=== PATIENT | female | born 1955 | race African-American/Black ===

== ENCOUNTER 2017-05-22 13:20 | Inpatient (IN) | payer SELFPAY ==
[~2017-05-22] VITALS: Ht 162.6 cm; Wt 51.7 kg
[2017-05-22 13:25] VITALS: BP 115/91
[2017-05-22 13:35] VITALS: BP 108/82
[2017-05-22 14:08] VITALS: BP 121/91
[2017-05-22] MEDS ORDERED: Albuterol ud Inhalation HHN ONE (14:30)
[2017-05-22] MEDS ORDERED: Ipratropium 0.02% Inh Soln 2.5ml UD HHN ONE (14:30)
[2017-05-22 14:32] LABS: BASOPHILS % (AUTO) 0.7 % (0.0-2.0); EOSINOPHILS % (AUTO) 0.2 % (0.0-3.0); LYMPHOCYTES % (AUTO) 14.1 % (20.0-45.0); MEAN CORPUSCULAR HEMOGLOBIN 30.8 PG (27.0-31.0); MEAN CORPUSCULAR HGB CONC 33.2 G/DL (32.0-36.0); MEAN CORPUSCULAR VOLUME 93 FL (80-99); MONOCYTES % (AUTO) 7.6 % (1.0-10.0); NEUTROPHILS % (AUTO) 77.4 % (45.0-75.0); PLATELET COUNT 213 K/UL (150-450); RED BLOOD COUNT 3.23 M/UL (4.20-5.40); RED CELL DISTRIBUTION WIDTH 13.2 % (11.6-14.8); WHITE BLOOD COUNT 6.8 K/UL (4.8-10.8)
--- NOTE | 2017-05-22 14:41 | Emergency Room Report ---
History of Present Illness General Chief Complaint: Upper Respiratory Illness Source: Patient, EMS Present Illness HPI 61YOF BIBEMS with SOB for 1 day. +smoker, history of COPD, CHF, HTN Denies fever/chills, cough, abd pain, nausea/vomiting, urinary complaints "Ran out of insurance" in September. Hasnt taken metoprolol 50mg or methimazole or asthma inhaler "in months." "Previous heart surgery." Not sure what type Allergies: Coded Allergies: PENICILLINS (Verified Allergy, Unknown, 05/22/17) Patient History Past Medical History: HTN, CHF, asthma, other - Graves disease Past Surgical History: other - "heart surgery" Pertinent Family History: none Social History: Reports: smoking, Denies: alcohol use, drug use Immunizations: UTD Reviewed Nursing Documentation: PMH: Agreed, PSxH: Agreed Nursing Documentation-PMH Past Medical History: No History, Except For Hx Cardiac Problems: Yes Hx Hypertension: Yes Hx COPD: Yes Review of Systems All Other Systems: negative except mentioned in HPI Physical Exam Vital Signs Date Time Temp Pulse Resp B/P (MAP) Pulse Ox O2 Delivery O2 Flow Rate FiO2 05/22/17 13:17 98.8 140 18 126/100 100 Non-Rebreather 15.0 Sp02 EP Interpretation: reviewed, normal General Appearance: normal inspection, no apparent distress, alert, GCS 15, non -toxic, moderate distress, other - Tripoding/leaning forward, tachypnic Head: normocephalic, atraumatic Eyes: bilateral eye PERRL, bilateral eye EOMI ENT: normal ENT inspection, hearing grossly normal, normal voice Neck: normal inspection, full range of motion, supple, no bony tend Respiratory: normal inspection, no wheezing, decreased breath sounds, accessory muscle use, crackles, wheezing Cardiovascular #1: no edema, JVD, tachycardia Gastrointestinal: normal inspection, normal bowel sounds, non tender, soft, no guarding, no hernia Genitourinary: no CVA tenderness Musculoskeletal: normal inspection, back normal, normal range of motion, Saurabh' s Sign negative Neurologic: normal inspection, alert, oriented x3, responsive, 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, speech normal Psychiatric: normal inspection, judgement/insight normal, mood/affect normal Skin: normal inspection, normal color, no rash Procedures Critical Care Time Critical Care Time CC time 45 minutes for this patient with SOB Multiple medical problems CHF, COPD Tachypnea, tachycardia, hypoxic CC time includes admin of BIPAP/adjusting settings, review of labs/ECG/CXR, d/w director [employer] Possibly includes dosing of meds for NSTEMI/ACS Possibly includes dosing of Abx, pressors Medical Decision Making Diagnostic Impression: Primary Impression: SOB (shortness of breath) Additional Impressions: Hyperthyroidism CHF (congestive heart failure) Qualified Codes: I50.9 - Heart failure, unspecified ER Course SOB for 1 day Months of noncompliance on medications VS significant for tachypnea to 45, tachycardia to 131, hypoxia Likely multifactorial of COPD, CHF Labs: No leuks. H&h stable. Tropo WNL. Elevated BNP. LOW TSH - likely multifactorial causes including acute on chronic CHF, hyperthyroidism from uncontrolled Graves disease - Improved on BIPAP - Got Oral methimazole and Metoprolol - Free T3/4 were ordered, lab told me they are send-outs Admit to [facility] Dr. Ruff for Dr Gray 357pm EKG Diagnostic Results Rate: tachycardiac Rhythm: NSR ST Segments: no acute changes ASA given to the pt in ED: No Rhythm Strip Diag. Results EP Interpretation: yes Rate: 133 Rhythm: NSR, no PVC's, no ectopy Chest X-Ray Diagnostic Results Chest X-Ray Diagnostic Results : Chest X-Ray Ordered: Yes # of Views/Limited/Complete: 1 View Indication: Shortness of Breath EP Interpretation: Yes Interpretation: no pneumothorax, other - Acute pulm congestion Last Vital Signs Date Time Temp Pulse Resp B/P (MAP) Pulse Ox O2 Delivery O2 Flow Rate FiO2 05/22/17 13:25 98.8 118 36 115/91 100 Non-Rebreather 15.0 Status: improved Disposition: ADMITTED INPATIENT Condition: Critical ALYSSA NAVA M.D. May 22, 2017 14:41
[2017-05-22] MEDS ORDERED: LORazepam 0.5mg tab ORAL ONE (15:00)
[2017-05-22 15:15] LABS: ALANINE AMINOTRANSFERASE 53 U/L (12-78); ALBUMIN/GLOBULIN RATIO 1.1 (1.0-2.7); ANION GAP 14 mmol/L (5-15); ASPARTATE AMINO TRANSFERASE 32 U/L (15-37); CALCIUM 9.7 MG/DL (8.5-10.1); CARBON DIOXIDE 23 MMOL/L (21-32); CHLORIDE 111 MMOL/L (98-107); CKMB 2.1 NG/ML (0.0-3.6); CREATININE 0.4 MG/DL (0.55-1.30); GLOMERULAR FILTRATION RATE > 60 mL/min (>60); POTASSIUM 3.7 MMOL/L (3.5-5.1); SODIUM 148 MMOL/L (136-145); THYROID STIMULATING HORMONE < 0.007 uiU/mL (0.360-3.740); TOTAL PROTEIN 6.4 G/DL (6.4-8.2)
--- NOTE | 2017-05-22 15:23 | Diagnostic Imaging Report ---
Indication: SOB Technique: One view of the chest Comparison: none Findings: There is diffuse bilateral reticular and nodular interstitial disease. There is some bronchial wall thickening. There are bilateral pleural effusions the heart is mildly enlarged Impression: Mild cardiomegaly Bilateral diffuse interstitial disease, acuity indeterminate, could represent acute interstitial edema, versus chronic interstitial fibrotic change, versus combination of both. Correlate with clinical findings. Bilateral pleural effusions
[2017-05-22 15:37] VITALS: BP 109/72
[2017-05-22] MEDS ORDERED: ADVAIR 100-501 EACH INH (15:54)
[2017-05-22] MEDS ORDERED: METOPROLOL SUCC50 MG ORAL (15:54)
[2017-05-22] MEDS ORDERED: METHIMAZOLE5 MG PO (15:54)
[2017-05-22] MEDS ORDERED: VENTOLIN HFA18 GM INH (15:55)
[2017-05-22] MEDS ORDERED: Morphine Sulfate 4mg/ml Inj IVP PRN ×2 (16:30)
[2017-05-22] MEDS ORDERED: Miralax 17gm pkt ORAL PRN (16:30)
[2017-05-22] MEDS ORDERED: Promethazine/Codeine 5ml UD ORAL PRN (17:00)
[2017-05-22 17:10] VITALS: BP 149/84
[2017-05-22] MEDS ORDERED: Ipratropium 0.02% Inh Soln 2.5ml UD HHN PRN (17:30)
[2017-05-22] MEDS ORDERED: Albuterol/Ipratropium 3ml neb HHN PRN (17:30)
--- NOTE | 2017-05-22 17:33 | History and Physical ---
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 Aguero at [facility] on 12/22/16), CHF, HTN who presents with SOB. Pt states she has not taken her meds since Sep of this year as she lost her insurance. She noted worsening SOB over the past few weeks and especially today prompting her to come to ER. Denies f/c, n/v, d/c, chest pain, abd pain, BLE swelling. In ED, pt found to have severe hyperthyroidism. She was given methimazole. She was noted to be in respiratory distress and placed on BiPAP. Allergies: Coded Allergies: CODEINE (Verified Allergy, Unknown, 05/22/17) PENICILLINS (Verified Allergy, Unknown, 05/22/17) Medication History Scheduled Albuterol Sulfate (Ventolin Hfa), 2 PUFFS INH EVERY 6 HOURS, (Reported) Fluticasone/Salmeterol (Advair 100-50 Diskus), 1 PUFF INH EVERY 12 HOURS, ( Reported) Metoprolol Succinate* (Metoprolol Succinate*), 50 MG ORAL DAILY, (Reported) Miscellaneous Medications Methimazole (Methimazole), 5 MG PO, (Reported) Patient History History Provided By: Patient, Medical Record Healthcare decision maker N Resuscitation status Advanced Directive on File Past Medical/Surgical History Past Medical/Surgical History: (1) CHF (congestive heart failure) (2) COPD (chronic obstructive pulmonary disease) (3) Hyperthyroidism (4) HTN (hypertension) (5) Bicuspid aortic valve (6) Graves disease (7) s/p robotic repair of MV and TV with annular rings by Dr. Aguero at [facility] on 12/23/2015 (8) high output cardiomyopathy Family History Family History: Patient reports no known family medical history. Social History Social History: (1) Tobacco abuse Review of Systems Constitutional: Reports: weakness ENT: Reports: no symptoms Respiratory: Reports: shortness of breath Cardiovascular: Reports: no symptoms Gastrointestinal: Reports: no symptoms Genitourinary: Reports: no symptoms Musculoskeletal: Reports: no symptoms Skin: Reports: no symptoms Psychiatric: Reports: no symptoms Neurological: Reports: no symptoms Endocrine: Reports: no symptoms Hematologic/Lymphatic: Reports: no symptoms Physical Exam Physical Exam Narrative General: alert, cooperative, no distress, appears stated age, thin Head: normocephalic, without obvious abnormality, atraumatic Eyes: conjunctivae/corneas clear. PERRL, EOM's intact Throat: lips, mucosa, and tongue normal. MMM Neck: supple, symmetrical, trachea midline, and no JVD Lungs: +rhonchi L>R Heart: regular rate and rhythm, S1, S2 normal, no murmur, click, rub or gallop Abdomen: soft, non-tender, non-distended, bowel sounds normal; no masses or organomegaly Extremities: extremities normal, atraumatic, no cyanosis or edema Pulses: 2+ and symmetric Skin: skin color, texture, turgor normal; no rashes or lesions Neurologic: grossly normal, no focal deficits Last 24 Hour Vital Signs Date Time Temp Pulse Resp B/P (MAP) Pulse Ox O2 Delivery O2 Flow Rate FiO2 05/22/17 17:10 97.9 130 39 149/84 95 Bi-pap 30 05/22/17 17:00 130 34 96 Facial 15.0 30 05/22/17 16:48 15.0 30 05/22/17 16:45 98.8 133 42 109/72 97 Bi-pap 15.0 30 05/22/17 15:37 98.8 133 42 109/72 97 Bi-pap 15.0 30 05/22/17 15:13 136 40 96 Bi-pap 15.0 30 05/22/17 15:03 30 05/22/17 15:03 125 42 96 Bi-pap 15.0 30 05/22/17 14:45 144 42 96 Facial 15.0 30 05/22/17 14:08 98.7 136 32 121/91 100 Non-Rebreather 15.0 05/22/17 13:35 98.7 142 34 108/82 100 Non-Rebreather 15.0 05/22/17 13:25 98.8 118 36 115/91 100 Non-Rebreather 15.0 05/22/17 13:25 118 36 Non-Rebreather 15.0 05/22/17 13:17 98.8 140 18 126/100 100 Non-Rebreather 15.0 Intake and Output 05/22/17 05/23/17 19:00 07:00 Output Total 100 ml Balance -100 ml Output Urine Total 100 ml # Voids 4 Laboratory Tests Test 05/22/17 14:00 05/22/17 14:43 05/22/17 14:53 05/22/17 16:10 White Blood Count 6.8 K/UL (4.8-10.8) Red Blood Count 3.23 M/UL (4.20-5.40) L Hemoglobin 10.0 G/DL (12.0-16.0) L Hematocrit 30.1 % (37.0-47.0) L Mean Corpuscular Volume 93 FL (80-99) Mean Corpuscular Hemoglobin 30.8 PG (27.0-31.0) Mean Corpuscular Hemoglobin Concent 33.2 G/DL (32.0-36.0) Red Cell Distribution Width 13.2 % (11.6-14.8) Platelet Count 213 K/UL (150-450) Mean Platelet Volume 8.0 FL (6.5-10.1) Neutrophils (%) (Auto) 77.4 % (45.0-75.0) H Lymphocytes (%) (Auto) 14.1 % (20.0-45.0) L Monocytes (%) (Auto) 7.6 % (1.0-10.0) Eosinophils (%) (Auto) 0.2 % (0.0-3.0) Basophils (%) (Auto) 0.7 % (0.0-2.0) Sodium Level 148 MMOL/L (136-145) H Potassium Level 3.7 MMOL/L (3.5-5.1) Chloride Level 111 MMOL/L (98-107) H Carbon Dioxide Level 23 MMOL/L (21-32) Anion Gap 14 mmol/L (5-15) Blood Urea Nitrogen 11 mg/dL (7-18) Creatinine 0.4 MG/DL (0.55-1.30) L Estimat Glomerular Filtration Rate > 60 mL/min (>60) Glucose Level 79 MG/DL (74-106) Calcium Level 9.7 MG/DL (8.5-10.1) Total Bilirubin 0.9 MG/DL (0.2-1.0) Aspartate Amino Transf (AST/SGOT) 32 U/L (15-37) Alanine Aminotransferase (ALT/SGPT) 53 U/L (12-78) Alkaline Phosphatase 166 U/L (46-116) H Total Creatine Kinase 44 U/L (26-308) Creatine Kinase MB 2.1 NG/ML (0.0-3.6) Creatine Kinase MB Relative Index 4.7 Pro-B-Type Natriuretic Peptide 1186 pg/mL (0-125) H Total Protein 6.4 G/DL (6.4-8.2) Albumin 3.4 G/DL (3.4-5.0) Globulin 3.0 g/dL Albumin/Globulin Ratio 1.1 (1.0-2.7) Thyroid Stimulating Hormone (TSH) < 0.007 uiU/mL (0.360-3.740) Free Thyroxine 7.99 NG/DL (0.10-1.46) H Urine Opiates Screen Negative (NEGATIVE) Urine Barbiturates Screen Negative (NEGATIVE) Phencyclidine (PCP) Screen Negative (NEGATIVE) Urine Amphetamines Screen Negative (NEGATIVE) Urine Benzodiazepines Screen Negative (NEGATIVE) Urine Cocaine Screen Negative (NEGATIVE) Urine Marijuana (THC) Screen Negative (NEGATIVE) Troponin I 0.021 ng/mL (0.000-0.056) Free Triiodothyronine Pending Height (Feet): 5 Height (Inches): 4.00 Weight (Pounds): 130 Medications Current Medications Medications (Trade) Dose Ordered Sig/Palma Route PRN Reason Start Time Stop Time Status Last Admin Dose Admin Acetaminophen (Tylenol) 650 mg Q4H PRN ORAL Mild Pain (Pain Scale 1-3) 05/22/17 16:30 06/21/17 16:29 Albuterol/ Ipratropium (DuoNeb 0.5-3(2.5)mg/3ml) 3 ml Q6HRT HHN 05/22/17 19:00 05/27/17 18:59 Aztreonam 1 gm/ Sodium Chloride 50 ml @ 100 mls/hr Q8H IVPB 05/22/17 18:00 05/29/17 17:59 Bisacodyl (Dulcolax) 10 mg HSPRN PRN RECTAL Constipation Second Line Agent 05/22/17 16:30 06/21/17 16:29 Dextrose (Dextrose 50%) STAT PRN IV Hypoglycemia 05/22/17 16:30 06/21/17 16:29 Methylprednisolone Sodium Succinate (Solu-MEDROL) 60 mg EVERY 6 HOURS IVP 05/22/17 18:00 06/21/17 17:59 Morphine Sulfate (Morphine Sulfate) 2 mg Q4H PRN IVP Moderate Pain (Pain Scale 4-6) 05/22/17 16:30 05/29/17 16:29 Morphine Sulfate (Morphine Sulfate) 4 mg Q4H PRN IVP Severe Pain (Pain Scale 7-10) 05/22/17 16:30 05/29/17 16:29 Ondansetron HCl (Zofran) 4 mg Q6H PRN IVP Nausea & Vomiting 05/22/17 16:30 06/21/17 16:29 Polyethylene Glycol (Miralax) 17 gm HSPRN PRN ORAL Constipation First Line Agent 05/22/17 16:30 06/21/17 16:29 Promethazine HCl/ Codeine (Phenergan with Codeine) 5 ml Q4H PRN ORAL For Cough 05/22/17 17:00 06/21/17 16:59 Theophylline (Haim-Dur) 100 mg EVERY 12 HOURS ORAL 05/22/17 21:00 06/21/17 20:59 Assessment/Plan Problem List: (1) Thyrotoxicosis ICD Codes: E05.90 - Thyrotoxicosis, unspecified without thyrotoxic crisis or storm SNOMED: 06621916 (2) Acute respiratory failure with hypoxia ICD Codes: J96.01 - Acute respiratory failure with hypoxia SNOMED: 15052432, 677676093 (3) COPD with acute exacerbation ICD Codes: J44.1 - Chronic obstructive pulmonary disease with (acute) exacerbation SNOMED: 325068371 (4) Graves disease ICD Codes: E05.00 - Thyrotoxicosis with diffuse goiter without thyrotoxic crisis or storm SNOMED: 147680179 (5) CHF (congestive heart failure) ICD Codes: I50.9 - Heart failure, unspecified SNOMED: 55234967 Qualifiers: Qualified Codes: I50.9 - Heart failure, unspecified (6) HTN (hypertension) ICD Codes: I10 - Essential (primary) hypertension SNOMED: 19925919 (7) Tobacco abuse ICD Codes: Z72.0 - Tobacco use SNOMED: 09253554, 878074061 (8) Noncompliance with medications ICD Codes: Z91.14 - Patient's other noncompliance with medication regimen SNOMED: 639532284 Status: stable Assessment/Plan Admit to [facility] Endocrinology consulted Cont methimazole per endo Cardiology and pulm consulted Trend trop/EKG Check TTE Lasix 40mg IV qd to keep I/O -1L Strict I/O's, daily weights Steroids per pulm Hold MTP given COPD exacerbation Nebs ATC and PRN Cont home Advair and Spiriva Windows Consultant on tobacco cessation Windows Consultant on med compliance FULL CODE D/w pt, RN, cardiology, pulmonology, endocrinology regarding mgmt and dispo Elzbieta Sena M.D. May 22, 2017 17:33
[2017-05-22] MEDS: Solu-MEDROL 125mg Inj IVP SCH (18:41)
[2017-05-22] MEDS: Aztreonam Inj 1 GM in NS 50 ML IVPB SCH (18:42)
[2017-05-22] MEDS ORDERED: LORazepam Inj 2mg/ml 1ml IV PRN (18:45)
[2017-05-22] MEDS ORDERED: Levalbuterol Inh UD 1.25mg/0.5ml HHN PRN (18:45)
[2017-05-22] MEDS ORDERED: Albuterol/Ipratropium 3ml neb HHN SCH (19:00)
[2017-05-22 20:00] VITALS: BP 135/74
[2017-05-22] MEDS: Theophylline ER 100mg ORAL SCH (21:02)
[2017-05-23] VITALS: BP 134/62
[2017-05-23] MEDS ORDERED: Levalbuterol Inh UD 1.25mg/0.5ml HHN SCH
[2017-05-23] MEDS: Solu-MEDROL 125mg Inj IVP SCH ×4 (00:28→18:19)
[2017-05-23] MEDS: Levalbuterol Inh UD 1.25mg/0.5ml HHN SCH ×4 (01:03→19:30)
[2017-05-23] MEDS: Aztreonam Inj 1 GM in NS 50 ML IVPB SCH ×3 (02:18→18:19)
[2017-05-23 04:00] VITALS: BP 132/59
[2017-05-23 06:09] LABS: MEAN CORPUSCULAR HEMOGLOBIN 29.7 PG (27.0-31.0); MEAN CORPUSCULAR HGB CONC 31.8 G/DL (32.0-36.0); MEAN CORPUSCULAR VOLUME 93 FL (80-99); MEAN PLATELET VOLUME 7.6 FL (6.5-10.1); PLATELET COUNT 216 K/UL (150-450); RED BLOOD COUNT 3.31 M/UL (4.20-5.40); RED CELL DISTRIBUTION WIDTH 13.3 % (11.6-14.8); WHITE BLOOD COUNT 8.6 K/UL (4.8-10.8)
[2017-05-23 06:40] LABS: ANION GAP 15 mmol/L (5-15); CALCIUM 9.9 MG/DL (8.5-10.1); CARBON DIOXIDE 23 MMOL/L (21-32); CHLORIDE 109 MMOL/L (98-107); CREATININE 0.3 MG/DL (0.55-1.30); GLOMERULAR FILTRATION RATE > 60 mL/min (>60); POTASSIUM 3.7 MMOL/L (3.5-5.1); SODIUM 146 MMOL/L (136-145); THYROID STIMULATING HORMONE < 0.007 uiU/mL (0.360-3.740)
[2017-05-23 08:00] VITALS: BP 117/77
[2017-05-23] MEDS: Theophylline ER 100mg ORAL SCH ×2 (08:28→21:52)
[2017-05-23] MEDS ORDERED: Metoprolol Succinate XL 50mg tab ORAL SCH ×2 (09:00)
--- NOTE | 2017-05-23 09:01 | Consultation ---
DATE OF CONSULTATION: 05/22/2017 ENDOCRINOLOGIC CONSULTATION CONSULTING PHYSICIAN: Diego Barajas M.D. REFERRING PHYSICIAN: Anahy Gray M.D. REASON FOR CONSULTATION: Hyperthyroidism. HISTORY OF PRESENT ILLNESS: The patient is a 61-year-old female with history of Graves disease who lost her insurance earlier this year therefore she went off of methimazole. The patient presented to the hospital with respiratory distress, was admitted to telemetry bed, started on BiPAP. I was called to evaluate for hypothyroidism. Her thyroid function test revealed undetectable TSH with elevated free T4 of 7.9, free T3 pending. PAST MEDICAL HISTORY: 1. Graves disease, previously followed at [facility] clinic. 2. COPD. 3. Hypertension. MEDICATIONS: As an outpatient none. FAMILY HISTORY: Noncontributory. REVIEW OF SYSTEMS: As per HPI. PHYSICAL EXAMINATION: VITAL SIGNS: Temperature 97.9, heart rate of 130, blood pressure 149/84, and respiratory rate of 39. HEENT: Pupils are equal and reactive to light. GED. NECK: No JVD. Thyroid is palpable. HEART: Tachycardic. LUNGS: wheezing. ABDOMEN: Positive bowel sounds. EXTREMITIES: Positive for tremor. LABORATORY DATA: As discussed in the present illness. DIAGNOSES: 1. Severe thyrotoxicosis. 2. Graves disease. 3. Chronic obstructive pulmonary disease exacerbation. PLAN: 1. Continue steroids. 2. Start Tapazole 20 mg b.i.d. 3. Once the COPD is stabilized, the patient needs to be treated with beta-blockers. 4. I will follow the patient during the hospital stay. Thank you, Dr. Gray for the courtesy of this consultation. Diego Barajas M.D. DR: David JOB#: [id number] CC: SERINA
[2017-05-23 09:10] LABS: BAND NEUTROPHILS % (MANUAL) 0 % (0-8); BASOPHILS % (MANUAL) 0 % (0-2); EOSINOPHILS % (MANUAL) 0 % (0-3); HYPOCHROMASIA 1+; LYMPHOCYTES % (MANUAL) 6 % (20-45); NEUTROPHILS % (MANUAL) 94 % (45-75); PLATELET ESTIMATE ADEQUATE; PLATELET MORPHOLOGY NORMAL; TOTAL CELLS COUNTED 100
[2017-05-23 09:23] LABS: ABG ALLEN TEST POSITIVE; ABG BASE EXCESS -2.2; ABG PCO2 33.8 mmHg (35.0-45.0)
[2017-05-23 09:32] LABS: MAGNESIUM 1.5 MG/DL (1.8-2.4); PHOSPHORUS 3.3 MG/DL (2.5-4.9)
--- NOTE | 2017-05-23 10:34 | Cardiac Electrophysiology PN ---
Subjective Subjective [id number]. Dictated. Hold off on metoprolol despite hyperthyroidism for wheezing and respiratory failure. Start Cardizem. TTE pending Objective Last 24 Hour Vital Signs Date Time Temp Pulse Resp B/P (MAP) Pulse Ox O2 Delivery O2 Flow Rate FiO2 05/23/17 08:28 130 117/77 05/23/17 08:00 97.0 130 19 117/77 96 Bi-pap 30 05/23/17 08:00 30 05/23/17 07:26 127 05/23/17 07:18 121 32 100 Bi-pap 30 05/23/17 07:11 115 27 100 Facial 30 05/23/17 07:05 30 05/23/17 07:05 120 26 98 Bi-pap 30 05/23/17 05:24 124 31 97 Facial 30 05/23/17 04:00 15.0 30 05/23/17 04:00 98.4 121 32 132/59 96 Bi-pap 30 05/23/17 03:47 122 05/23/17 03:05 123 34 98 Facial 30 05/23/17 01:13 126 43 99 Bi-pap 30 05/23/17 01:03 121 41 99 Bi-pap 30 05/23/17 01:03 121 41 99 Facial 30 05/23/17 01:03 30 05/23/17 00:00 98.3 127 36 134/62 99 Bi-pap 30 05/23/17 00:00 125 05/22/17 23:30 123 45 98 Facial 30 05/22/17 21:18 119 43 97 Facial 30 05/22/17 20:07 Bi-pap 30 05/22/17 20:07 Bi-pap 30 05/22/17 20:07 126 38 100 Facial 30 05/22/17 20:00 15.0 30 05/22/17 20:00 98.1 76 36 135/74 97 Bi-pap 30 05/22/17 19:24 122 05/22/17 17:10 97.9 130 39 149/84 95 Bi-pap 30 05/22/17 17:00 130 34 96 Facial 15.0 30 05/22/17 16:48 15.0 30 05/22/17 16:45 98.8 133 42 109/72 97 Bi-pap 15.0 30 05/22/17 15:37 98.8 133 42 109/72 97 Bi-pap 15.0 30 05/22/17 15:13 136 40 96 Bi-pap 15.0 30 05/22/17 15:03 30 05/22/17 15:03 125 42 96 Bi-pap 15.0 30 05/22/17 14:45 144 42 96 Facial 15.0 30 05/22/17 14:08 98.7 136 32 121/91 100 Non-Rebreather 15.0 05/22/17 13:35 98.7 142 34 108/82 100 Non-Rebreather 15.0 05/22/17 13:25 98.8 118 36 115/91 100 Non-Rebreather 15.0 05/22/17 13:25 118 36 Non-Rebreather 15.0 05/22/17 13:17 98.8 140 18 126/100 100 Non-Rebreather 15.0 Laboratory Tests Test 05/22/17 14:00 05/22/17 14:43 05/22/17 14:53 05/22/17 16:10 White Blood Count 6.8 K/UL (4.8-10.8) Red Blood Count 3.23 M/UL (4.20-5.40) L Hemoglobin 10.0 G/DL (12.0-16.0) L Hematocrit 30.1 % (37.0-47.0) L Mean Corpuscular Volume 93 FL (80-99) Mean Corpuscular Hemoglobin 30.8 PG (27.0-31.0) Mean Corpuscular Hemoglobin Concent 33.2 G/DL (32.0-36.0) Red Cell Distribution Width 13.2 % (11.6-14.8) Platelet Count 213 K/UL (150-450) Mean Platelet Volume 8.0 FL (6.5-10.1) Neutrophils (%) (Auto) 77.4 % (45.0-75.0) H Lymphocytes (%) (Auto) 14.1 % (20.0-45.0) L Monocytes (%) (Auto) 7.6 % (1.0-10.0) Eosinophils (%) (Auto) 0.2 % (0.0-3.0) Basophils (%) (Auto) 0.7 % (0.0-2.0) Sodium Level 148 MMOL/L (136-145) H Potassium Level 3.7 MMOL/L (3.5-5.1) Chloride Level 111 MMOL/L (98-107) H Carbon Dioxide Level 23 MMOL/L (21-32) Anion Gap 14 mmol/L (5-15) Blood Urea Nitrogen 11 mg/dL (7-18) Creatinine 0.4 MG/DL (0.55-1.30) L Estimat Glomerular Filtration Rate > 60 mL/min (>60) Glucose Level 79 MG/DL (74-106) Calcium Level 9.7 MG/DL (8.5-10.1) Total Bilirubin 0.9 MG/DL (0.2-1.0) Aspartate Amino Transf (AST/SGOT) 32 U/L (15-37) Alanine Aminotransferase (ALT/SGPT) 53 U/L (12-78) Alkaline Phosphatase 166 U/L (46-116) H Total Creatine Kinase 44 U/L (26-308) Creatine Kinase MB 2.1 NG/ML (0.0-3.6) Creatine Kinase MB Relative Index 4.7 Pro-B-Type Natriuretic Peptide 1186 pg/mL (0-125) H Total Protein 6.4 G/DL (6.4-8.2) Albumin 3.4 G/DL (3.4-5.0) Globulin 3.0 g/dL Albumin/Globulin Ratio 1.1 (1.0-2.7) Thyroid Stimulating Hormone (TSH) < 0.007 uiU/mL (0.360-3.740) Free Thyroxine 7.99 NG/DL (0.10-1.46) H Urine Opiates Screen Negative (NEGATIVE) Urine Barbiturates Screen Negative (NEGATIVE) Phencyclidine (PCP) Screen Negative (NEGATIVE) Urine Amphetamines Screen Negative (NEGATIVE) Urine Benzodiazepines Screen Negative (NEGATIVE) Urine Cocaine Screen Negative (NEGATIVE) Urine Marijuana (THC) Screen Negative (NEGATIVE) Troponin I 0.021 ng/mL (0.000-0.056) Free Triiodothyronine Pending Test 05/23/17 04:40 05/23/17 09:15 White Blood Count 8.6 K/UL (4.8-10.8) Red Blood Count 3.31 M/UL (4.20-5.40) L Hemoglobin 9.9 G/DL (12.0-16.0) L Hematocrit 31.0 % (37.0-47.0) L Mean Corpuscular Volume 93 FL (80-99) Mean Corpuscular Hemoglobin 29.7 PG (27.0-31.0) Mean Corpuscular Hemoglobin Concent 31.8 G/DL (32.0-36.0) L Red Cell Distribution Width 13.3 % (11.6-14.8) Platelet Count 216 K/UL (150-450) Mean Platelet Volume 7.6 FL (6.5-10.1) Neutrophils (%) (Auto) % (45.0-75.0) Lymphocytes (%) (Auto) % (20.0-45.0) Monocytes (%) (Auto) % (1.0-10.0) Eosinophils (%) (Auto) % (0.0-3.0) Basophils (%) (Auto) % (0.0-2.0) Differential Total Cells Counted 100 Neutrophils % (Manual) 94 % (45-75) H Lymphocytes % (Manual) 6 % (20-45) L Monocytes % (Manual) 0 % (1-10) L Eosinophils % (Manual) 0 % (0-3) Basophils % (Manual) 0 % (0-2) Band Neutrophils 0 % (0-8) Platelet Estimate Adequate Platelet Morphology Normal Hypochromasia 1+ Sodium Level 146 MMOL/L (136-145) H Potassium Level 3.7 MMOL/L (3.5-5.1) Chloride Level 109 MMOL/L (98-107) H Carbon Dioxide Level 23 MMOL/L (21-32) Anion Gap 15 mmol/L (5-15) Blood Urea Nitrogen 8 mg/dL (7-18) Creatinine 0.3 MG/DL (0.55-1.30) L Estimat Glomerular Filtration Rate > 60 mL/min (>60) Glucose Level 90 MG/DL (74-106) Calcium Level 9.9 MG/DL (8.5-10.1) Phosphorus Level 3.3 MG/DL (2.5-4.9) Magnesium Level 1.5 MG/DL (1.8-2.4) L Pro-B-Type Natriuretic Peptide 881 pg/mL (0-125) H Thyroid Stimulating Hormone (TSH) < 0.007 uiU/mL (0.360-3.740) Arterial Blood pH 7.420 (7.350-7.450) Arterial Blood Partial Pressure CO2 33.8 mmHg (35.0-45.0) L Arterial Blood Partial Pressure O2 79.8 mmHg (75.0-100.0) Arterial Blood HCO3 21.4 mmol/L (22.0-26.0) L Arterial Blood Oxygen Saturation 96.9 % (92.0-98.0) Arterial Blood Base Excess -2.2 Indra Test Positive STEPHON FABIAN May 23, 2017 10:34
[2017-05-23 11:50] VITALS: BP 133/72
--- NOTE | 2017-05-23 12:25 | Consultation ---
History of Present Illness General Date patient seen: May 22, 2017 Chief Complaint: Upper Respiratory Illness Present Illness HPI 61 year old female with hx o hyperthyroidism +smoker, history of COPD, CHF, HTN presented with CC of SOB for 1 day. She hasn't taken any of her meds including metoprolol 50mg or methimazole or asthma inhaler "in months." Pt was found to be in respiratory failure and was put on BIPAP and transferring to [facility]. Allergies: Coded Allergies: CODEINE (Verified Allergy, Unknown, 05/22/17) PENICILLINS (Verified Allergy, Unknown, 05/22/17) Medication History Scheduled Albuterol Sulfate (Ventolin Hfa), 2 PUFFS INH EVERY 6 HOURS, (Reported) Fluticasone/Salmeterol (Advair 100-50 Diskus), 1 PUFF INH EVERY 12 HOURS, ( Reported) Metoprolol Succinate* (Metoprolol Succinate*), 50 MG ORAL DAILY, (Reported) Miscellaneous Medications Methimazole (Methimazole), 5 MG PO, (Reported) Patient History Healthcare decision maker N Resuscitation status Full Code Advanced Directive on File Past Medical/Surgical History Past Medical/Surgical History: (1) COPD (chronic obstructive pulmonary disease) (2) Hyperthyroidism Review of Systems Respiratory: Reports: shortness of breath, sputum Physical Exam General Appearance: WD/WN Lines, tubes and drains: peripheral HEENT: normocephalic, atraumatic Respiratory/Chest: rhonchi - left, rhonchi - right Cardiovascular/Chest: normal peripheral pulses, normal rate Abdomen: normal bowel sounds Genitourinary/Rectal: normal genital exam, normal rectal exam Extremities: normal range of motion, non-tender Last 24 Hour Vital Signs Date Time Temp Pulse Resp B/P (MAP) Pulse Ox O2 Delivery O2 Flow Rate FiO2 05/23/17 11:50 97.5 120 19 133/72 95 Bi-pap 30 05/23/17 09:30 101 29 100 Facial 30 05/23/17 08:28 130 117/77 05/23/17 08:00 97.0 130 19 117/77 96 Bi-pap 30 05/23/17 08:00 30 05/23/17 07:26 127 05/23/17 07:18 121 32 100 Bi-pap 30 05/23/17 07:11 115 27 100 Facial 30 05/23/17 07:05 30 05/23/17 07:05 120 26 98 Bi-pap 30 05/23/17 05:24 124 31 97 Facial 30 05/23/17 04:00 15.0 30 05/23/17 04:00 98.4 121 32 132/59 96 Bi-pap 30 05/23/17 03:47 122 05/23/17 03:05 123 34 98 Facial 30 05/23/17 01:13 126 43 99 Bi-pap 30 05/23/17 01:03 121 41 99 Bi-pap 30 05/23/17 01:03 121 41 99 Facial 30 05/23/17 01:03 30 05/23/17 00:00 98.3 127 36 134/62 99 Bi-pap 30 05/23/17 00:00 125 05/22/17 23:30 123 45 98 Facial 30 05/22/17 21:18 119 43 97 Facial 30 05/22/17 20:07 Bi-pap 30 05/22/17 20:07 Bi-pap 30 05/22/17 20:07 126 38 100 Facial 30 05/22/17 20:00 15.0 30 05/22/17 20:00 98.1 76 36 135/74 97 Bi-pap 30 05/22/17 19:24 122 05/22/17 17:10 97.9 130 39 149/84 95 Bi-pap 30 05/22/17 17:00 130 34 96 Facial 15.0 30 05/22/17 16:48 15.0 30 05/22/17 16:45 98.8 133 42 109/72 97 Bi-pap 15.0 30 05/22/17 15:37 98.8 133 42 109/72 97 Bi-pap 15.0 30 05/22/17 15:13 136 40 96 Bi-pap 15.0 30 05/22/17 15:03 30 05/22/17 15:03 125 42 96 Bi-pap 15.0 30 05/22/17 14:45 144 42 96 Facial 15.0 30 05/22/17 14:08 98.7 136 32 121/91 100 Non-Rebreather 15.0 05/22/17 13:35 98.7 142 34 108/82 100 Non-Rebreather 15.0 05/22/17 13:25 98.8 118 36 115/91 100 Non-Rebreather 15.0 05/22/17 13:25 118 36 Non-Rebreather 15.0 05/22/17 13:17 98.8 140 18 126/100 100 Non-Rebreather 15.0 Laboratory Tests Test 05/22/17 14:00 05/22/17 14:43 05/22/17 14:53 05/22/17 16:10 White Blood Count 6.8 K/UL (4.8-10.8) Red Blood Count 3.23 M/UL (4.20-5.40) L Hemoglobin 10.0 G/DL (12.0-16.0) L Hematocrit 30.1 % (37.0-47.0) L Mean Corpuscular Volume 93 FL (80-99) Mean Corpuscular Hemoglobin 30.8 PG (27.0-31.0) Mean Corpuscular Hemoglobin Concent 33.2 G/DL (32.0-36.0) Red Cell Distribution Width 13.2 % (11.6-14.8) Platelet Count 213 K/UL (150-450) Mean Platelet Volume 8.0 FL (6.5-10.1) Neutrophils (%) (Auto) 77.4 % (45.0-75.0) H Lymphocytes (%) (Auto) 14.1 % (20.0-45.0) L Monocytes (%) (Auto) 7.6 % (1.0-10.0) Eosinophils (%) (Auto) 0.2 % (0.0-3.0) Basophils (%) (Auto) 0.7 % (0.0-2.0) Sodium Level 148 MMOL/L (136-145) H Potassium Level 3.7 MMOL/L (3.5-5.1) Chloride Level 111 MMOL/L (98-107) H Carbon Dioxide Level 23 MMOL/L (21-32) Anion Gap 14 mmol/L (5-15) Blood Urea Nitrogen 11 mg/dL (7-18) Creatinine 0.4 MG/DL (0.55-1.30) L Estimat Glomerular Filtration Rate > 60 mL/min (>60) Glucose Level 79 MG/DL (74-106) Calcium Level 9.7 MG/DL (8.5-10.1) Total Bilirubin 0.9 MG/DL (0.2-1.0) Aspartate Amino Transf (AST/SGOT) 32 U/L (15-37) Alanine Aminotransferase (ALT/SGPT) 53 U/L (12-78) Alkaline Phosphatase 166 U/L (46-116) H Total Creatine Kinase 44 U/L (26-308) Creatine Kinase MB 2.1 NG/ML (0.0-3.6) Creatine Kinase MB Relative Index 4.7 Pro-B-Type Natriuretic Peptide 1186 pg/mL (0-125) H Total Protein 6.4 G/DL (6.4-8.2) Albumin 3.4 G/DL (3.4-5.0) Globulin 3.0 g/dL Albumin/Globulin Ratio 1.1 (1.0-2.7) Thyroid Stimulating Hormone (TSH) < 0.007 uiU/mL (0.360-3.740) Free Thyroxine 7.99 NG/DL (0.10-1.46) H Urine Opiates Screen Negative (NEGATIVE) Urine Barbiturates Screen Negative (NEGATIVE) Phencyclidine (PCP) Screen Negative (NEGATIVE) Urine Amphetamines Screen Negative (NEGATIVE) Urine Benzodiazepines Screen Negative (NEGATIVE) Urine Cocaine Screen Negative (NEGATIVE) Urine Marijuana (THC) Screen Negative (NEGATIVE) Troponin I 0.021 ng/mL (0.000-0.056) Free Triiodothyronine 32.0 pg/mL (2.0-4.4) H Test 05/23/17 04:40 05/23/17 09:15 White Blood Count 8.6 K/UL (4.8-10.8) Red Blood Count 3.31 M/UL (4.20-5.40) L Hemoglobin 9.9 G/DL (12.0-16.0) L Hematocrit 31.0 % (37.0-47.0) L Mean Corpuscular Volume 93 FL (80-99) Mean Corpuscular Hemoglobin 29.7 PG (27.0-31.0) Mean Corpuscular Hemoglobin Concent 31.8 G/DL (32.0-36.0) L Red Cell Distribution Width 13.3 % (11.6-14.8) Platelet Count 216 K/UL (150-450) Mean Platelet Volume 7.6 FL (6.5-10.1) Neutrophils (%) (Auto) % (45.0-75.0) Lymphocytes (%) (Auto) % (20.0-45.0) Monocytes (%) (Auto) % (1.0-10.0) Eosinophils (%) (Auto) % (0.0-3.0) Basophils (%) (Auto) % (0.0-2.0) Differential Total Cells Counted 100 Neutrophils % (Manual) 94 % (45-75) H Lymphocytes % (Manual) 6 % (20-45) L Monocytes % (Manual) 0 % (1-10) L Eosinophils % (Manual) 0 % (0-3) Basophils % (Manual) 0 % (0-2) Band Neutrophils 0 % (0-8) Platelet Estimate Adequate Platelet Morphology Normal Hypochromasia 1+ Sodium Level 146 MMOL/L (136-145) H Potassium Level 3.7 MMOL/L (3.5-5.1) Chloride Level 109 MMOL/L (98-107) H Carbon Dioxide Level 23 MMOL/L (21-32) Anion Gap 15 mmol/L (5-15) Blood Urea Nitrogen 8 mg/dL (7-18) Creatinine 0.3 MG/DL (0.55-1.30) L Estimat Glomerular Filtration Rate > 60 mL/min (>60) Glucose Level 90 MG/DL (74-106) Calcium Level 9.9 MG/DL (8.5-10.1) Phosphorus Level 3.3 MG/DL (2.5-4.9) Magnesium Level 1.5 MG/DL (1.8-2.4) L Pro-B-Type Natriuretic Peptide 881 pg/mL (0-125) H Thyroid Stimulating Hormone (TSH) < 0.007 uiU/mL (0.360-3.740) Arterial Blood pH 7.420 (7.350-7.450) Arterial Blood Partial Pressure CO2 33.8 mmHg (35.0-45.0) L Arterial Blood Partial Pressure O2 79.8 mmHg (75.0-100.0) Arterial Blood HCO3 21.4 mmol/L (22.0-26.0) L Arterial Blood Oxygen Saturation 96.9 % (92.0-98.0) Arterial Blood Base Excess -2.2 Indra Test Positive Height (Feet): 5 Height (Inches): 4.00 Weight (Pounds): 115 Medications Current Medications Medications (Trade) Dose Ordered Sig/Palma Route PRN Reason Start Time Stop Time Status Last Admin Dose Admin Acetaminophen (Tylenol) 650 mg Q4H PRN ORAL Mild Pain (Pain Scale 1-3) 05/22/17 16:30 06/21/17 16:29 05/22/17 21:06 Aztreonam 1 gm/ Sodium Chloride 50 ml @ 100 mls/hr Q8H IVPB 05/22/17 18:00 05/29/17 17:59 05/23/17 10:36 Bisacodyl (Dulcolax) 10 mg HSPRN PRN RECTAL Constipation Second Line Agent 05/22/17 16:30 06/21/17 16:29 Dextrose (Dextrose 50%) STAT PRN IV Hypoglycemia 05/22/17 16:30 06/21/17 16:29 Diltiazem HCl (Cardizem) 60 mg EVERY 8 HOURS ORAL 05/23/17 14:00 06/22/17 13:59 Levalbuterol HCl (Xopenex) 1.25 mg Q4H PRN HHN Shortness of Breath 05/22/17 18:45 05/27/17 18:44 Levalbuterol HCl (Xopenex) 1.25 mg Q6HRT HHN 05/23/17 01:00 05/28/17 00:59 05/23/17 07:05 Lorazepam (Ativan 2mg/ml 1ml) 0.5 mg Q6H PRN IV For Anxiety 05/22/17 18:45 05/29/17 18:44 05/23/17 00:28 Methimazole (Tapazole) 20 mg BID ORAL 05/22/17 22:00 06/21/17 21:59 05/23/17 08:26 Methylprednisolone Sodium Succinate (Solu-MEDROL) 60 mg EVERY 6 HOURS IVP 05/22/17 18:00 06/21/17 17:59 05/23/17 06:21 Ondansetron HCl (Zofran) 4 mg Q6H PRN IVP Nausea & Vomiting 05/22/17 16:30 06/21/17 16:29 Polyethylene Glycol (Miralax) 17 gm HSPRN PRN ORAL Constipation First Line Agent 05/22/17 16:30 06/21/17 16:29 Salmeterol Xinafoate/ Fluticasone (Advair 100/50 Diskus) 1 puffs EVERY 12 HOURS INH 05/23/17 12:30 06/22/17 12:29 Theophylline (Haim-Dur) 100 mg EVERY 12 HOURS ORAL 05/22/17 21:00 06/21/17 20:59 05/23/17 08:28 Assessment/Plan Problem List: (1) Acute respiratory failure ICD Codes: J96.00 - Acute respiratory failure, unspecified whether with hypoxia or hypercapnia SNOMED: 47346440 (2) COPD with acute exacerbation ICD Codes: J44.1 - Chronic obstructive pulmonary disease with (acute) exacerbation SNOMED: 998117279 (3) Pulmonary fibrosis ICD Codes: J84.10 - Pulmonary fibrosis, unspecified SNOMED: 43437473 (4) Hyperthyroidism ICD Codes: E05.90 - Thyrotoxicosis, unspecified without thyrotoxic crisis or storm SNOMED: 03556730 Assessment/Plan IV steroids IV abx check sputum Endo following theophyline BROOKE WILDER May 23, 2017 12:25
--- NOTE | 2017-05-23 12:26 | Pulmonology Progress Note ---
Assessment/Plan Problems: (1) Acute respiratory failure (2) COPD with acute exacerbation (3) Pulmonary fibrosis (4) Hyperthyroidism Assessment/Plan slightly better check sputum dc lasix Ct chest when more stable. chest PT Subjective Constitutional: Reports: no symptoms HEENT: Repors: no symptoms Respiratory: Reports: no symptoms Cardiovascular: Reports: no symptoms Allergies: Coded Allergies: CODEINE (Verified Allergy, Unknown, 05/22/17) PENICILLINS (Verified Allergy, Unknown, 05/22/17) Objective Last 24 Hour Vital Signs Date Time Temp Pulse Resp B/P (MAP) Pulse Ox O2 Delivery O2 Flow Rate FiO2 05/23/17 11:50 97.5 120 19 133/72 95 Bi-pap 30 05/23/17 09:30 101 29 100 Facial 30 05/23/17 08:28 130 117/77 05/23/17 08:00 97.0 130 19 117/77 96 Bi-pap 30 05/23/17 08:00 30 05/23/17 07:26 127 05/23/17 07:18 121 32 100 Bi-pap 30 05/23/17 07:11 115 27 100 Facial 30 05/23/17 07:05 30 05/23/17 07:05 120 26 98 Bi-pap 30 05/23/17 05:24 124 31 97 Facial 30 05/23/17 04:00 15.0 30 05/23/17 04:00 98.4 121 32 132/59 96 Bi-pap 30 05/23/17 03:47 122 05/23/17 03:05 123 34 98 Facial 30 05/23/17 01:13 126 43 99 Bi-pap 30 05/23/17 01:03 121 41 99 Bi-pap 30 05/23/17 01:03 121 41 99 Facial 30 05/23/17 01:03 30 05/23/17 00:00 98.3 127 36 134/62 99 Bi-pap 30 05/23/17 00:00 125 05/22/17 23:30 123 45 98 Facial 30 05/22/17 21:18 119 43 97 Facial 30 05/22/17 20:07 Bi-pap 30 05/22/17 20:07 Bi-pap 30 05/22/17 20:07 126 38 100 Facial 30 05/22/17 20:00 15.0 30 05/22/17 20:00 98.1 76 36 135/74 97 Bi-pap 30 05/22/17 19:24 122 05/22/17 17:10 97.9 130 39 149/84 95 Bi-pap 30 05/22/17 17:00 130 34 96 Facial 15.0 30 05/22/17 16:48 15.0 30 05/22/17 16:45 98.8 133 42 109/72 97 Bi-pap 15.0 30 05/22/17 15:37 98.8 133 42 109/72 97 Bi-pap 15.0 30 05/22/17 15:13 136 40 96 Bi-pap 15.0 30 05/22/17 15:03 30 05/22/17 15:03 125 42 96 Bi-pap 15.0 30 05/22/17 14:45 144 42 96 Facial 15.0 30 05/22/17 14:08 98.7 136 32 121/91 100 Non-Rebreather 15.0 05/22/17 13:35 98.7 142 34 108/82 100 Non-Rebreather 15.0 05/22/17 13:25 98.8 118 36 115/91 100 Non-Rebreather 15.0 05/22/17 13:25 118 36 Non-Rebreather 15.0 05/22/17 13:17 98.8 140 18 126/100 100 Non-Rebreather 15.0 General Appearance: WD/WN HEENT: normocephalic, atraumatic Respiratory/Chest: chest wall non-tender, decreased breath sounds, accessory muscle use Breasts: no masses Cardiovascular: normal rate Abdomen: normal bowel sounds, soft, non tender, no scars Extremities: no cyanosis Laboratory Tests 05/22/17 14:00: White Blood Count 6.8, Red Blood Count 3.23L, Hemoglobin 10.0L, Hematocrit 30.1L , Mean Corpuscular Volume 93, Mean Corpuscular Hemoglobin 30.8, Mean Corpuscular Hemoglobin Concent 33.2, Red Cell Distribution Width 13.2, Platelet Count 213, Mean Platelet Volume 8.0, Neutrophils (%) (Auto) 77.4H, Lymphocytes ( %) (Auto) 14.1L, Monocytes (%) (Auto) 7.6, Eosinophils (%) (Auto) 0.2, Basophils (%) (Auto) 0.7, Sodium Level 148H, Potassium Level 3.7, Chloride Level 111H, Carbon Dioxide Level 23, Anion Gap 14, Blood Urea Nitrogen 11, Creatinine 0.4L, Estimat Glomerular Filtration Rate > 60, Glucose Level 79, Calcium Level 9.7, Total Bilirubin 0.9, Aspartate Amino Transf (AST/SGOT) 32, Alanine Aminotransferase (ALT/SGPT) 53, Alkaline Phosphatase 166H, Total Creatine Kinase 44, Creatine Kinase MB 2.1, Creatine Kinase MB Relative Index 4.7, Pro-B-Type Natriuretic Peptide 1186H, Total Protein 6.4, Albumin 3.4, Globulin 3.0, Albumin/Globulin Ratio 1.1, Thyroid Stimulating Hormone (TSH) < 0.007L, Free Thyroxine 7.99H 05/22/17 14:43: Urine Opiates Screen Negative, Urine Barbiturates Screen Negative, Phencyclidine (PCP) Screen Negative, Urine Amphetamines Screen Negative, Urine Benzodiazepines Screen Negative, Urine Cocaine Screen Negative, Urine Marijuana (THC) Screen Negative 05/22/17 14:53: Troponin I 0.021 05/22/17 16:10: Free Triiodothyronine 32.0H 05/23/17 04:40: White Blood Count 8.6, Red Blood Count 3.31L, Hemoglobin 9.9L, Hematocrit 31.0L , Mean Corpuscular Volume 93, Mean Corpuscular Hemoglobin 29.7, Mean Corpuscular Hemoglobin Concent 31.8L, Red Cell Distribution Width 13.3, Platelet Count 216, Mean Platelet Volume 7.6, Neutrophils (%) (Auto) , Lymphocytes (%) (Auto) , Monocytes (%) (Auto) , Eosinophils (%) (Auto) , Basophils (%) (Auto) , Differential Total Cells Counted 100, Neutrophils % ( Manual) 94H, Lymphocytes % (Manual) 6L, Monocytes % (Manual) 0L, Eosinophils % ( Manual) 0, Basophils % (Manual) 0, Band Neutrophils 0, Platelet Estimate Adequate, Platelet Morphology Normal, Hypochromasia 1+, Sodium Level 146H, Potassium Level 3.7, Chloride Level 109H, Carbon Dioxide Level 23, Anion Gap 15 , Blood Urea Nitrogen 8, Creatinine 0.3L, Estimat Glomerular Filtration Rate > 60, Glucose Level 90, Calcium Level 9.9, Phosphorus Level 3.3, Magnesium Level 1.5L, Pro-B-Type Natriuretic Peptide 881H, Thyroid Stimulating Hormone (TSH) < 0.007L 05/23/17 09:15: Arterial Blood pH 7.420, Arterial Blood Partial Pressure CO2 33.8L, Arterial Blood Partial Pressure O2 79.8, Arterial Blood HCO3 21.4L, Arterial Blood Oxygen Saturation 96.9, Arterial Blood Base Excess -2.2, Indra Test Positive Current Medications Medications (Trade) Dose Ordered Sig/Palma Route PRN Reason Start Time Stop Time Status Last Admin Dose Admin Acetaminophen (Tylenol) 650 mg Q4H PRN ORAL Mild Pain (Pain Scale 1-3) 05/22/17 16:30 06/21/17 16:29 05/22/17 21:06 Aztreonam 1 gm/ Sodium Chloride 50 ml @ 100 mls/hr Q8H IVPB 05/22/17 18:00 05/29/17 17:59 05/23/17 10:36 Bisacodyl (Dulcolax) 10 mg HSPRN PRN RECTAL Constipation Second Line Agent 05/22/17 16:30 06/21/17 16:29 Dextrose (Dextrose 50%) STAT PRN IV Hypoglycemia 05/22/17 16:30 06/21/17 16:29 Diltiazem HCl (Cardizem) 60 mg EVERY 8 HOURS ORAL 05/23/17 14:00 06/22/17 13:59 Levalbuterol HCl (Xopenex) 1.25 mg Q4H PRN HHN Shortness of Breath 05/22/17 18:45 05/27/17 18:44 Levalbuterol HCl (Xopenex) 1.25 mg Q6HRT HHN 05/23/17 01:00 05/28/17 00:59 05/23/17 07:05 Lorazepam (Ativan 2mg/ml 1ml) 0.5 mg Q6H PRN IV For Anxiety 05/22/17 18:45 05/29/17 18:44 05/23/17 00:28 Methimazole (Tapazole) 20 mg BID ORAL 05/22/17 22:00 06/21/17 21:59 05/23/17 08:26 Methylprednisolone Sodium Succinate (Solu-MEDROL) 60 mg EVERY 6 HOURS IVP 05/22/17 18:00 06/21/17 17:59 05/23/17 06:21 Ondansetron HCl (Zofran) 4 mg Q6H PRN IVP Nausea & Vomiting 05/22/17 16:30 06/21/17 16:29 Polyethylene Glycol (Miralax) 17 gm HSPRN PRN ORAL Constipation First Line Agent 05/22/17 16:30 06/21/17 16:29 Salmeterol Xinafoate/ Fluticasone (Advair 100/50 Diskus) 1 puffs EVERY 12 HOURS INH 05/23/17 12:30 06/22/17 12:29 Theophylline (Haim-Dur) 100 mg EVERY 12 HOURS ORAL 05/22/17 21:00 06/21/17 20:59 05/23/17 08:28 BROOKE WILDER May 23, 2017 12:26
[2017-05-23] MEDS: dilTIAZem HCl 60mg tab ORAL SCH ×2 (13:09→21:52)
[2017-05-23] MEDS: Advair 100/50 Inhaler - 14 dose INH SCH ×2 (13:12→22:46)
[2017-05-23] MEDS ORDERED: dilTIAZem HCl 60mg tab ORAL SCH (14:00)
[2017-05-23 16:00] VITALS: BP 125/60
[2017-05-23] MEDS ORDERED: Tubing IV Secondary IV ONE (16:22)
--- NOTE | 2017-05-23 18:28 | General Progress Note ---
Assessment/Plan Problem List: (1) Acute respiratory failure with hypoxia ICD Codes: J96.01 - Acute respiratory failure with hypoxia SNOMED: 85178244, 942119495 (2) COPD with acute exacerbation ICD Codes: J44.1 - Chronic obstructive pulmonary disease with (acute) exacerbation SNOMED: 618104020 (3) Thyrotoxicosis ICD Codes: E05.90 - Thyrotoxicosis, unspecified without thyrotoxic crisis or storm SNOMED: 23275281 (4) Graves disease ICD Codes: E05.00 - Thyrotoxicosis with diffuse goiter without thyrotoxic crisis or storm SNOMED: 315056345 (5) CHF (congestive heart failure) ICD Codes: I50.9 - Heart failure, unspecified SNOMED: 88609104 Qualifiers: Qualified Codes: I50.9 - Heart failure, unspecified (6) HTN (hypertension) ICD Codes: I10 - Essential (primary) hypertension SNOMED: 50197296 (7) Tobacco abuse ICD Codes: Z72.0 - Tobacco use SNOMED: 77526031, 236988288 (8) Noncompliance with medications ICD Codes: Z91.14 - Patient's other noncompliance with medication regimen SNOMED: 220270241 Status: stable Assessment/Plan Endocrinology consulted Cont methimazole per endo Cardiology and pulm consulted Check TTE--EF 60%, mild diastolic dyfcn, RAP elevated at 15, mod to severe pulm H TN Hold lasix given hypernatremia Strict I/O's, daily weights Steroids per pulm Hold MTP given COPD exacerbation Diltiazem started per cardiology Nebs ATC and PRN Cont home Advair and Spiriva Check Weigher on tobacco cessation Check Weigher on med compliance PT eval Possible d/c tomorrow if cont to improve FULL CODE D/w pt, RN, cardiology, pulmonology, endocrinology regarding mgmt and dispo Subjective Date patient seen: May 23, 2017 Time patient seen: 15:00 ROS Limited/Unobtainable: No Constitutional: Reports: no symptoms HEENT: Reports: no symptoms Cardiovascular: Reports: no symptoms Respiratory: Reports: shortness of breath Gastrointestinal/Abdominal: Reports: no symptoms Genitourinary: Reports: no symptoms Neurologic/Psychiatric: Reports: no symptoms Endocrine: Reports: no symptoms Hematologic/Lymphatic: Reports: no symptoms Allergies: Coded Allergies: CODEINE (Verified Allergy, Unknown, 05/22/17) PENICILLINS (Verified Allergy, Unknown, 05/22/17) All Systems: reviewed and negative except above Subjective No acute o/n events Now off BiPAP Feeling better and wants to ambulate Objective Last 24 Hour Vital Signs Date Time Temp Pulse Resp B/P (MAP) Pulse Ox O2 Delivery O2 Flow Rate FiO2 05/23/17 16:00 97.8 118 18 125/60 96 Nasal Cannula 4.0 05/23/17 13:23 126 24 100 Nasal Cannula 2.0 28 05/23/17 13:17 127 22 99 Nasal Cannula 2.0 28 05/23/17 13:09 121 133/72 05/23/17 12:30 121 05/23/17 12:00 25 92 Nasal Cannula 2.0 05/23/17 11:50 97.5 120 19 133/72 95 Bi-pap 30 05/23/17 09:30 101 29 100 Facial 30 05/23/17 08:28 130 117/77 05/23/17 08:00 97.0 130 19 117/77 96 Bi-pap 30 05/23/17 08:00 30 05/23/17 07:26 127 05/23/17 07:18 121 32 100 Bi-pap 30 05/23/17 07:11 115 27 100 Facial 30 05/23/17 07:05 30 05/23/17 07:05 120 26 98 Bi-pap 30 05/23/17 05:24 124 31 97 Facial 30 05/23/17 04:00 15.0 30 05/23/17 04:00 98.4 121 32 132/59 96 Bi-pap 30 05/23/17 03:47 122 05/23/17 03:05 123 34 98 Facial 30 05/23/17 01:13 126 43 99 Bi-pap 30 05/23/17 01:03 121 41 99 Bi-pap 30 05/23/17 01:03 121 41 99 Facial 30 05/23/17 01:03 30 05/23/17 00:00 98.3 127 36 134/62 99 Bi-pap 30 05/23/17 00:00 125 05/22/17 23:30 123 45 98 Facial 30 05/22/17 21:18 119 43 97 Facial 30 05/22/17 20:07 Bi-pap 30 05/22/17 20:07 Bi-pap 30 05/22/17 20:07 126 38 100 Facial 30 05/22/17 20:00 15.0 30 05/22/17 20:00 98.1 76 36 135/74 97 Bi-pap 30 05/22/17 19:24 122 Intake and Output 05/23/17 05/24/17 19:00 07:00 Intake Total 150 ml Balance 150 ml IV Total 150 ml Laboratory Tests 05/23/17 04:40: White Blood Count 8.6, Red Blood Count 3.31L, Hemoglobin 9.9L, Hematocrit 31.0L , Mean Corpuscular Volume 93, Mean Corpuscular Hemoglobin 29.7, Mean Corpuscular Hemoglobin Concent 31.8L, Red Cell Distribution Width 13.3, Platelet Count 216, Mean Platelet Volume 7.6, Neutrophils (%) (Auto) , Lymphocytes (%) (Auto) , Monocytes (%) (Auto) , Eosinophils (%) (Auto) , Basophils (%) (Auto) , Differential Total Cells Counted 100, Neutrophils % ( Manual) 94H, Lymphocytes % (Manual) 6L, Monocytes % (Manual) 0L, Eosinophils % ( Manual) 0, Basophils % (Manual) 0, Band Neutrophils 0, Platelet Estimate Adequate, Platelet Morphology Normal, Hypochromasia 1+, Sodium Level 146H, Potassium Level 3.7, Chloride Level 109H, Carbon Dioxide Level 23, Anion Gap 15 , Blood Urea Nitrogen 8, Creatinine 0.3L, Estimat Glomerular Filtration Rate > 60, Glucose Level 90, Calcium Level 9.9, Phosphorus Level 3.3, Magnesium Level 1.5L, Pro-B-Type Natriuretic Peptide 881H, Thyroid Stimulating Hormone (TSH) < 0.007L 05/23/17 09:15: Arterial Blood pH 7.420, Arterial Blood Partial Pressure CO2 33.8L, Arterial Blood Partial Pressure O2 79.8, Arterial Blood HCO3 21.4L, Arterial Blood Oxygen Saturation 96.9, Arterial Blood Base Excess -2.2, Indra Test Positive Height (Feet): 5 Height (Inches): 4.00 Weight (Pounds): 115 Objective General: alert, cooperative, no distress, appears stated age, thin Head: normocephalic, without obvious abnormality, atraumatic Eyes: conjunctivae/corneas clear. PERRL, EOM's intact Throat: lips, mucosa, and tongue normal. MMM Neck: supple, symmetrical, trachea midline, and no JVD Lungs: +rhonchi L>R Heart: tachycardic, regular rhythm, S1, S2 normal, no murmur, click, rub or gallop Abdomen: soft, non-tender, non-distended, bowel sounds normal; no masses or organomegaly Extremities: extremities normal, atraumatic, no cyanosis or edema Pulses: 2+ and symmetric Skin: skin color, texture, turgor normal; no rashes or lesions Neurologic: grossly normal, no focal deficits Elzbieta Sena M.D. May 23, 2017 18:28
[2017-05-23 20:00] VITALS: BP 125/67
[2017-05-24] VITALS: BP 115/60
[2017-05-24] MEDS: Aztreonam Inj 1 GM in NS 50 ML IVPB SCH (00:34)
[2017-05-24] MEDS: Solu-MEDROL 125mg Inj IVP SCH ×2 (00:34→05:03)
[2017-05-24] MEDS: Levalbuterol Inh UD 1.25mg/0.5ml HHN SCH ×2 (00:53→07:30)
[2017-05-24 04:47] VITALS: BP 140/69
[2017-05-24] MEDS: dilTIAZem HCl 60mg tab ORAL SCH (05:05)
[2017-05-24] MEDS: Advair 100/50 Inhaler - 14 dose INH SCH (07:33)
[2017-05-24 08:00] VITALS: BP 135/53
--- NOTE | 2017-05-24 08:30 | Consultation ---
DATE OF CONSULTATION: 05/23/2017 CARDIOLOGY CONSULTATION REFERRING PHYSICIAN: Anahy Gray M.D. CONSULTING PHYSICIAN: Venkat Spain M.D. ATTENDING PHYSICIAN: Anahy Gray M.D. REASON FOR CONSULTATION: Tachycardia and shortness of breath in a patient with hyperthyroidism. HISTORY OF PRESENT ILLNESS: The patient is a 61-year-old lady with a history of Graves' disease, who lost her insurance earlier and without methimazole. The patient presented to the hospital with respiratory failure and was placed on BiPAP. She had undetectable TSH with elevated T4 of 7.9. The patient was admitted and Cardiology consultation was obtained for further evaluation and management. At the time of my evaluation, the patient is still short of breath, on BiPAP. PAST MEDICAL HISTORY: 1. Hypertension. 2. Graves' disease. To follow at [facility]. 3. COPD. MEDICATIONS: As an outpatient include methimazole and Toprol-XL 50 mg daily. FAMILY HISTORY: Noncontributory. REVIEW OF SYSTEMS: Review of systems was performed and was negative other than what was mentioned in the history of present illness. PHYSICAL EXAMINATION: VITAL SIGNS: Blood pressure is 117/77, pulse 130, respirations 18, and temperature 97 degrees. HEAD AND NECK: Mild JVD. LUNGS: Decreased breath sounds. No wheezes. CARDIOVASCULAR: Tachycardic. S1 and S2 with no gallop or murmur. ABDOMEN: Soft. EXTREMITIES: No pitting edema. LABORATORY AND DIAGNOSTIC DATA: White count of 8.6, hemoglobin 9.9, hematocrit 31, and platelet count of 260,000. Sodium 142, potassium 3.7, BUN of 8, creatinine 0.3, and glucose of 90. Troponin is negative. BNP is 881. TSH is . ASSESSMENT AND PLAN: 1. Sinus tachycardia due to hyperthyroidism. The patient was on beta-birgit. So, this could be related to beta-birgit withdrawal as well. I would like to put the patient on beta-birgit, however, the patient has severe shortness of breath with wheezing and is on BiPAP. I will start the patient on Cardizem at this time. Hopefully, we treat patient for hyperthyroidism, the tachycardia would improve. We will also put the patient on Lasix 40 mg IV daily and get an echocardiogram for further evaluation. 2. Hyperthyroidism. Further evaluation by Dr. Barajas. 3. Respiratory failure and possible pneumonia, on IV antibiotic as well as Haim-Dur, Advair, and Solu-Medrol. Thank you very much Dr. Gray for allowing me to participate in the care of this patient. Please do not hesitate to contact me for any questions regarding my evaluation. Venkat Spain M.D. DR: OSITO JOB#: [id number] CC:
[2017-05-24] MEDS: Theophylline ER 100mg ORAL SCH (09:00)
[2017-05-24] MEDS ORDERED: Levalbuterol Inh UD 1.25mg/0.5ml HHN PRN (10:45)
[2017-05-24] MEDS ORDERED: Aztreonam Inj 1 GM in NS 50 ML IVPB SCH (11:00)
[2017-05-24] MEDS ORDERED: Solu-MEDROL 125mg Inj IVP SCH (12:00)
[2017-05-24 12:05] VITALS: BP 116/74
[2017-05-24] MEDS ORDERED: LORazepam Inj 2mg/ml 1ml IV PRN (12:45)
[2017-05-24] MEDS ORDERED: Levalbuterol Inh UD 1.25mg/0.5ml HHN SCH (13:00)
--- NOTE | 2017-05-24 13:05 | Pulmonology Progress Note ---
Assessment/Plan Problems: (1) Acute respiratory failure (2) COPD with acute exacerbation (3) Pulmonary fibrosis (4) Hyperthyroidism Assessment/Plan slightly better check sputum dc lasix Ct chest when more stable. chest PT Subjective ROS Limited/Unobtainable: No Constitutional: Reports: no symptoms HEENT: Repors: no symptoms Allergies: Coded Allergies: CODEINE (Verified Allergy, Unknown, 05/22/17) PENICILLINS (Verified Allergy, Unknown, 05/22/17) Objective Last 24 Hour Vital Signs Date Time Temp Pulse Resp B/P (MAP) Pulse Ox O2 Delivery O2 Flow Rate FiO2 05/24/17 12:05 97.7 104 18 116/74 98 Room Air 05/24/17 09:47 Nasal Cannula 3.0 32 05/24/17 09:46 Nasal Cannula 3.0 32 05/24/17 08:00 100 05/24/17 08:00 98.3 108 17 135/53 93 Nasal Cannula 2.0 05/24/17 07:35 Nasal Cannula 3.0 32 05/24/17 07:34 Nasal Cannula 3.0 32 05/24/17 05:05 123 140/69 05/24/17 04:47 96.3 123 24 140/69 100 Nasal Cannula 3.0 05/24/17 04:00 118 05/24/17 01:17 110 26 95 Nasal Cannula 3.0 32 05/24/17 01:07 108 24 98 Nasal Cannula 3.0 32 05/24/17 00:53 109 22 93 Nasal Cannula 3.0 32 05/24/17 00:00 118 05/23/17 21:52 111 125/67 05/23/17 20:00 97.9 109 22 125/67 97 Room Air 05/23/17 20:00 111 05/23/17 19:45 108 24 96 Nasal Cannula 4.0 36 05/23/17 19:40 109 22 96 Nasal Cannula 4.0 36 05/23/17 19:40 109 22 96 Nasal Cannula 4.0 36 05/23/17 19:30 107 24 97 Nasal Cannula 4.0 36 05/23/17 16:00 97.8 118 18 125/60 96 Nasal Cannula 4.0 05/23/17 15:25 120 05/23/17 13:23 126 24 100 Nasal Cannula 2.0 28 05/23/17 13:17 127 22 99 Nasal Cannula 2.0 28 05/23/17 13:09 121 133/72 Intake and Output 05/24/17 05/25/17 19:00 07:00 Intake Total 790 ml Output Total 500 ml Balance 290 ml Intake Oral 790 ml Output Urine Total 500 ml # Voids 3 General Appearance: WD/WN HEENT: normocephalic, atraumatic Respiratory/Chest: chest wall non-tender, lungs clear Breasts: no masses Cardiovascular: regular rhythm Abdomen: normal bowel sounds, no organomegaly, no scars Extremities: no cyanosis Skin: no rash Microbiology Date/Time Source Procedure Growth Status 05/23/17 07:00 Sputum Gram Stain Pending Resulted 05/23/17 07:00 Sputum Sputum Culture - Preliminary Resulted Current Medications Medications (Trade) Dose Ordered Sig/[place]ma Route PRN Reason Start Time Stop Time Status Last Admin Dose Admin Acetaminophen (Tylenol) 650 mg Q4H PRN ORAL Mild Pain (Pain Scale 1-3) 05/24/17 10:30 06/21/17 10:29 Aztreonam 1 gm/ Sodium Chloride 50 ml @ 100 mls/hr Q8H IVPB 05/24/17 11:00 05/29/17 10:59 05/24/17 10:59 Bisacodyl (Dulcolax) 10 mg HSPRN PRN RECTAL Constipation Second Line Agent 05/24/17 16:30 06/21/17 16:29 Dextrose (Dextrose 50%) STAT PRN IV Hypoglycemia 05/24/17 10:30 06/21/17 10:29 Diltiazem HCl (Cardizem) 60 mg EVERY 8 HOURS ORAL 05/24/17 14:00 06/22/17 13:59 Levalbuterol HCl (Xopenex) 1.25 mg Q4H PRN HHN Shortness of Breath 05/24/17 10:45 05/27/17 18:44 Levalbuterol HCl (Xopenex) 1.25 mg Q6HRT HHN 05/24/17 13:00 05/28/17 00:59 Lorazepam (Ativan 2mg/ml 1ml) 0.5 mg Q6H PRN IV For Anxiety 05/24/17 12:45 05/29/17 18:44 Methimazole (Tapazole) 20 mg BID ORAL 05/24/17 18:00 06/21/17 21:59 Methylprednisolone Sodium Succinate (Solu-MEDROL) 60 mg EVERY 6 HOURS IVP 05/24/17 12:00 06/21/17 17:59 05/24/17 11:02 Ondansetron HCl (Zofran) 4 mg Q6H PRN IVP Nausea & Vomiting 05/24/17 10:30 06/21/17 16:29 Polyethylene Glycol (Miralax) 17 gm HSPRN PRN ORAL Constipation First Line Agent 05/24/17 16:30 06/21/17 16:29 Salmeterol Xinafoate/ Fluticasone (Advair 100/50 Diskus) 1 puffs EVERY 12 HOURS INH 05/24/17 21:00 06/22/17 12:29 Theophylline (Haim-Dur) 100 mg EVERY 12 HOURS ORAL 05/24/17 21:00 06/21/17 20:59 Tiotropium [place] (Spiriva Inhaler) 1 puff DAILY INH 05/25/17 09:00 06/22/17 19:59 BROOKE WILDER May 24, 2017 13:05
[2017-05-24] MEDS ORDERED: ADVAIR 100-501 EACH INH (13:15)
[2017-05-24] MEDS ORDERED: SPIRIVA INHALE1 PUF1 INH (13:15)
[2017-05-24] MEDS ORDERED: METOPROLOL SUCC50 MG ORAL (13:15)
[2017-05-24] MEDS ORDERED: PREDNISONE10 MG ORAL (13:15)
[2017-05-24] MEDS ORDERED: TAPAZOLE5 MG ORAL ×2 (13:15→13:44)
[2017-05-24] MEDS ORDERED: VENTOLIN HFA18 GM INH (13:15)
[2017-05-24] MEDS ORDERED: dilTIAZem HCl 60mg tab ORAL SCH (14:00)
[2017-05-24 14:28] VITALS: BP 116/74
[2017-05-24] MEDS ORDERED: Tubing IV Secondary IV ONE (15:29)
[2017-05-24] MEDS ORDERED: NS 500ML IV ONE (15:29)
--- NOTE | 2017-05-24 16:02 | Cardiac Electrophysiology PN ---
Assessment/Plan Assessment/Plan 1. Sinus tachycardia due to hyperthyroidism.On Tapazol and Solumedrol. Continue Cardizem 60 tid 2. S/P Mitral and tricuspid valve surgery at [facility]. Echo Moderate pulmonary HTN. 2. Hyperthyroidism. Further evaluation by Dr. Barajas. 3. Respiratory failure and possible pneumonia, on IV antibiotic as well as Haim-Dur, Advair, and Solu-Medrol. Subjective Subjective Feeling better. Wants to go home. Objective Last 24 Hour Vital Signs Date Time Temp Pulse Resp B/P (MAP) Pulse Ox O2 Delivery O2 Flow Rate FiO2 05/24/17 14:28 98 116/74 05/24/17 13:26 98 22 92 Room Air 21 05/24/17 13:16 98 20 91 Room Air 21 05/24/17 12:05 97.7 104 18 116/74 98 Room Air 05/24/17 09:47 Nasal Cannula 3.0 32 05/24/17 09:46 Nasal Cannula 3.0 32 05/24/17 08:00 100 05/24/17 08:00 98.3 108 17 135/53 93 Nasal Cannula 2.0 05/24/17 07:35 Nasal Cannula 3.0 32 05/24/17 07:34 Nasal Cannula 3.0 32 05/24/17 05:05 123 140/69 05/24/17 04:47 96.3 123 24 140/69 100 Nasal Cannula 3.0 05/24/17 04:00 118 05/24/17 01:17 110 26 95 Nasal Cannula 3.0 32 05/24/17 01:07 108 24 98 Nasal Cannula 3.0 32 05/24/17 00:53 109 22 93 Nasal Cannula 3.0 32 05/24/17 00:00 118 05/23/17 21:52 111 125/67 05/23/17 20:00 97.9 109 22 125/67 97 Room Air 05/23/17 20:00 111 05/23/17 19:45 108 24 96 Nasal Cannula 4.0 36 05/23/17 19:40 109 22 96 Nasal Cannula 4.0 36 05/23/17 19:40 109 22 96 Nasal Cannula 4.0 36 05/23/17 19:30 107 24 97 Nasal Cannula 4.0 36 05/23/17 16:00 97.8 118 18 125/60 96 Nasal Cannula 4.0 Intake and Output 05/24/17 05/25/17 19:00 07:00 Intake Total 1030 ml Output Total 500 ml Balance 530 ml Intake Oral 1030 ml Output Urine Total 500 ml # Voids 5 Microbiology Date/Time Source Procedure Growth Status 05/23/17 07:00 Sputum Gram Stain - Final Resulted 05/23/17 07:00 Sputum Sputum Culture - Preliminary Resulted Objective HEAD AND NECK: Mild JVD. LUNGS: Decreased breath sounds. No wheezes. CARDIOVASCULAR: Tachycardic. S1 and S2 with no gallop or murmur.Scar of cardiac surgery under right breast healed. ABDOMEN: Soft. EXTREMITIES: No pitting edema. STEPHON FABIAN May 24, 2017 16:01
[2017-05-24] MEDS ORDERED: Miralax 17gm pkt ORAL PRN (16:30)
[2017-05-24] MEDS ORDERED: Advair 100/50 Inhaler - 14 dose INH SCH (21:00)
[2017-05-24] MEDS ORDERED: Theophylline ER 100mg ORAL SCH (21:00)
[2017-05-25] MEDS ORDERED: Solu-MEDROL 125mg Inj IVP SCH (09:00)
--- NOTE | 2017-05-26 09:49 | Diagnostic Imaging Report ---
APPROVED REPORT CPT Code: 81496 Present Symptoms Shortness of breath BILATERAL: Imaging reveals a patent deep venous system bilaterally. There is no evidence of thrombus within the femoral, popliteal or tibial segments. The greater saphenous veins are also within normal limits. Doppler indicates normal spontaneous flow within these segments.
--- NOTE | 2017-05-27 06:33 | Discharge Summary ---
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 Aguero at [facility] on 12/22/16), CHF, HTN who presents with SOB. Pt states she has not taken her meds since Sep of this year as she lost her insurance. She noted worsening SOB over the past few weeks and especially today prompting her to come to ER. Denies f/c, n/v, d/c, chest pain, abd pain, BLE swelling. In ED, pt found to have severe hyperthyroidism. She was given methimazole. She was noted to be in respiratory distress and placed on BiPAP. Consultations Pulmonology, Cardiology Hospital Course Pt was admitted to [facility] and treated for possible COPD exacerbation w/ around the clock debulizers, as well as steroids. She was also given lasix IV to assist w/ fluid status. She was seen by endocrinology and continued on methimazole. She symptomatically improved. Pt was seen by PT and cleared for d/c home. Discharge Medications New Medications: Prednisone* (Prednisone*) 10 Mg Tablet 10 MG ORAL DAILY, #40 TAB 0 Refills Methimazole (Methimazole) 5 Mg Tablet 20 MG ORAL DAILY for 30 Days, #120 TAB Tiotropium [place] (Spiriva) 18 Mcg Cap.w.dev 1 PUFF INH DAILY for 30 Days, #1 B Changed Medications: Albuterol Sulfate (Ventolin Hfa) 18 Gm Hfa.aer.ad 2 PUFFS INH EVERY 6 HOURS PRN, #18 GM 0 Refills (Medication details modified) shortness of breath, wheezing Continued Medications: Fluticasone/Salmeterol (Advair 100-50 Diskus) 1 Each Blst.w.dev 1 PUFF INH EVERY 12 HOURS for 30 Days, #1 EA (This prescription has been renewed ) Metoprolol Succinate* (Metoprolol Succinate*) 50 Mg Tab.er.24h 50 MG ORAL DAILY, #30 TAB (This prescription has been renewed) Discontinued Medications: Methimazole (Methimazole) 5 Mg Tablet 5 MG PO, TAB Discharge Condition Upon Discharge: stable Discharge Disposition Patient was discharged to Home (01) Discharge Diagnoses: (1) Thyrotoxicosis (2) Graves disease (3) Acute respiratory failure with hypoxia (4) Pulmonary fibrosis (5) HTN (hypertension) (6) Bicuspid aortic valve (7) s/p robotic repair of MV and TV with annular rings by Dr. Aguero at [facility] on 12/23/2015 (8) COPD with acute exacerbation Elzbieta Sena M.D. May 27, 2017 06:33
--- NOTE | 2017-05-27 12:14 | Cardiology Report ---
APPROVED REPORT EKG Measurement Heart [id number] Sinus tachycardia Possible Left atrial enlargement Left ventricular hypertrophy Abnormal ECG
--- NOTE | 2017-05-27 14:00 | Cardiology Report ---
APPROVED REPORT EXAM: Two-dimensional and M-mode echocardiogram with Doppler and color Doppler. INDICATION Congestive Heart Failure M-Mode DIMENSIONS IVSd0.8 (0.7-1.1cm)Left Atrium (MM)3.5 (1.6-4.0cm) LVDd3.3 (3.5-5.6cm)Aortic Root2.4 (2.0-3.7cm) PWd1.1 (0.7-1.1cm)Aortic Cusp Exc.1.5 (1.5-2.0cm) LVDs1.8 (2.5-4.0cm) PWs1.4 cm Normal left ventricular chamber size, systolic function and wall motion. Left ventricular ejection fraction estimated to be 60 %. No evidence of left ventricular hypertrophy. No evidence of pericardial effusion. All other cardiac chamber sizes are within normal limits. Mild focal aortic valve sclerosis with adequate cusp excursion. Moderately thickened mitral valve leaflets with normal excursion. Heavy mitral annulus and aortic root calcification. Normal pulmonic valve structure. Normal tricuspid valve structure. IVC dilated at 2.4 cm and non-collapsing with respiration, estimated RAP is 15 mmHg. A color flow and spectral Doppler study was performed and revealed: Trace aortic insufficiency. Moderate mitral regurgitation. Mitral diastolic velocities suggest reduced left ventricular relaxation c/w impaired relaxation (Grade I). Mild tricuspid regurgitation. Tricuspid systolic velocities suggests peak right ventricular systolic pressure of 56 mmHg, consistent with moderate to severe pulmonary hypertension. No pulmonic regurgitation present.
== END 2017-05-24 15:30 | disposition home or self-care (01) | DRG 643 ==
LOC: EDBD 13:20 → EMR 14:35 → EDBEDREQ 14:55 → 2W 15:20 → EDBEDREQ 15:41 → 2W 20:05 → 2E 05-23 23:38
PROC: 5A09357 Assistance with Respiratory Ventilation, Less than 24 Consecutive Hours, Continuous Positive Airway Pressure (ICD-10-PCS; principal; 2017-05-22)
DX: E05.00 Thyrotoxicosis with diffuse goiter without thyrotoxic crisis or storm (principal); J96.01 Acute respiratory failure with hypoxia; Q23.1 Congenital insufficiency of aortic valve; J44.1 Chronic obstructive pulmonary disease with (acute) exacerbation; I42.8 Other cardiomyopathies; J84.10 Pulmonary fibrosis, unspecified; I10 Essential (primary) hypertension; F17.200 Nicotine dependence, unspecified, uncomplicated; Z88.6 Allergy status to analgesic agent; Z88.0 Allergy status to penicillin; I50.9 Heart failure, unspecified; Z91.14 Patient's other noncompliance with medication regimen; R00.0 Tachycardia, unspecified
CPT/HCPCS: 36415; 36600; 71010; 80048; 80053; 80306; 82550; 82553; 82803; 83735; 83880; 84100; 84439; 84443; 84481; 84484; 85007; 85025; 87070; 87205; 93005; 93306; 93970; 94640; 94660; 99285